=== PATIENT | female | born 1995 | race Caucasian/White ===

== ENCOUNTER 2021-06-09 19:48 | Emergency (ER) | payer BC ==
[2021-06-09 20:34] LABS: HEMOGLOBIN 13.8 gm/dl (12.3-15.3); RED BLOOD COUNT 4.35 M/UL (4.00-5.10); WHITE BLOOD COUNT 16.1 K/UL (4.5-11.0)
[2021-06-09 20:54] LABS: BUN/CREATININE RATIO 18 (0-10)
== END 2021-06-09 23:23 | disposition home or self-care (01) ==
LOC: ER1 19:48
PROVIDERS: Physician Assistant
DX: L76.22 Postprocedural hemorrhage of skin and subcutaneous tissue following other procedure (principal); F17.210 Nicotine dependence, cigarettes, uncomplicated
CPT/HCPCS: 80048; 85025; 99283; Q9967